=== PATIENT | female | born 2000 | race Caucasian/White ===

== ENCOUNTER → 2024-10-11 17:53 | Outpatient (CLI) | payer OTHER, SELFPAY ==
[2024-10-11 19:16] LABS: Influenza A - CEPHEID Flu A NEGATIVE (NEGATIVE); Influenza B - CEPHEID Flu B NEGATIVE (NEGATIVE); Respiratory Syncytial Virus Negative (Negative)
[2024-10-11 19:19] LABS: COVID-19 CEPHEID 4-PLEX PCR Negative (Negative)
== END ==
PROVIDERS: Visit Provider Registered Nurse
DX: R05.1 Acute cough (principal)
CPT/HCPCS: 0241U

== ENCOUNTER → 2025-01-04 19:02 | Outpatient (CLI) | payer OTHER, SELFPAY ==
--- NOTE | 2025-01-04 19:05 | DI.MRI.S_ITS ---
PROCEDURE: MR HIP RT WO CON INDICATIONS: pain TECHNIQUE: Noncontrast coronal T1 spin echo and STIR through the bony pelvis. Coronal and axial T2 fast spin echo with fat saturation, sagittal T1 spin echo, and oblique axial T2 fast spin echo with fat saturation through the hip. COMPARISON: [facility], CR, XR PELVIS WITH LATERAL HIP RIGHT, 11/18/2024, 14:57. FINDINGS: Image quality: Diagnostic Bones: Pelvic ring: No acute fracture Femoral head and neck: No acute fracture Ligamentum teres: Intact. Lumbar spine and sacrum: No acute finding. Tendons: Abductors: Minimal insertional edema Adductors and rectus abdominis: Intact. No pubic symphyseal edema. IT band: Intact. Iliopsoas: Intact. No bursitis. Hamstrings: Intact. Rectus femoris: Intact. Sartorius: Intact. Joint: Joint space: No significant effusion. Labrum: Nondisplaced possible small fluid cleft at the anterior superior labrum (4/9) possible partial fluid cleft seen extending to the superior labrum Cartilage: No full thickness defect. Soft tissues: Quadratus femoris: No edema or atrophy. Piriformis: Symmetric. Intrapelvic structures: Suspect tampon in place. Intrapelvic structures not well assessed on this musculoskeletal protocol study. No gross abnormality identified. IMPRESSION: Suspect fluid cleft at the superior and anterior superior labrum, possibly a nondisplaced tear. If further evaluation is needed, consider MR arthrogram. Minimal gluteus medius insertional edema. No acute fracture identified. No dislocation. Dictated by: Donaldo Jimenez M.D. on 01/05/2025 at 18:19 Approved by: Donaldo Jimenez M.D. on 01/05/2025 at 18:23
== END ==
LOC: MRI 19:03
PROVIDERS: Referring Provider Student in an Organized Health Care Education/Training Program; Visit Provider Student in an Organized Health Care Education/Training Program
DX: M25.451 Effusion, right hip (principal); M25.551 Pain in right hip
CPT/HCPCS: 73721